=== PATIENT | male | born 1985 | race Two or more races ===

== ENCOUNTER 2017-06-30 02:58 | Emergency (ER) | payer SELFPAY ==
[~2017-06-30] VITALS: Ht 165.1 cm; Wt 61.2 kg
[2017-06-30 03:04] VITALS: BP 124/68
== END 2017-06-30 05:53 | disposition left against medical advice (07) ==
LOC: EDBD 02:58 → ER 02:58
DX: R00.2 Palpitations (principal); Z53.21 Procedure and treatment not carried out due to patient leaving prior to being seen by health care provider

== ENCOUNTER 2017-10-23 14:27 | Emergency (ER) | payer MEDICAID ==
[~2017-10-23] VITALS: Ht 167.6 cm; Wt 64.9 kg
[2017-10-23 15:30] VITALS: BP 120/67
== END 2017-10-23 16:48 | disposition home or self-care (01) ==
LOC: ER 14:31
DX: S01.01XD Laceration without foreign body of scalp, subsequent encounter (principal); Z48.02 Encounter for removal of sutures